=== PATIENT | male | born 1985 | race Caucasian/White ===

== ENCOUNTER 2018-03-08 03:22 | Day surgery (SDC) | payer SELFPAY ==
[~2018-03-08] VITALS: Ht 177.8 cm; Wt 72.4 kg
[2018-03-08] MEDS ORDERED: NS IV 1000 ML 1,000 ML IV ONE (03:34)
--- NOTE | 2018-03-08 03:43 | ED Abdominal Pain ---
General Stated Complaint: RT SIDE ABD PAIN Source of Information: Patient Exam Limitations: No Limitations History of Present Illness Date Seen by Provider: Mar 08, 2018 Time Seen by Provider: 03:27 Initial Comments Here with report of right lower quadrant abdominal pain that has been going on for one to 2 days. Worse with movement and better with rest. Denies nausea, vomiting or diarrhea. Denies fever or chills. Timing/Duration: 1-2 Days Severity/Quality: Moderate, Aching Location: RLQ Radiation: No Radiation Modifying Factors: Worsens With Movement; Improves With Resting Associated Symptoms: No Fever/Chills, No Nausea/Vomiting, No Shortness of Air, No Weakness Allergies and Home Medications Allergies Coded Allergies: No Known Drug Allergies (Unverified , 03/08/18) Patient Home Medication List Home Medication List Reviewed: Yes Review of Systems Review of Systems Constitutional: see HPI; No chills, No fever Respiratory: No Symptoms Reported Cardiovascular: No Symptoms Reported Gastrointestinal: See HPI, Abdominal Pain; Denies Constipated, Denies Diarrhea Genitourinary: No Symptoms Reported Musculoskeletal: no symptoms reported All Other Systems Reviewed Negative Unless Noted: Yes Past Ykqlgdt-Luqswn-Hnlzie Hx Past Med/Social Hx: Reviewed Nursing Past Med/Soc Hx Patient Social History Alcohol Use: Denies Use Recreational Drug Use: No Smoking Status: Never a Smoker Recent Foreign Travel: No Contact w/Someone Who Travel: No Past Medical History Surgeries: Yes Abdominal (pyloric stenosis) Respiratory: No Cardiac: No Neurological: No Genitourinary: No Gastrointestinal: No Musculoskeletal: No Endocrine: No Cancer: No Psychosocial: No Family Medical History Heart Disease Physical Exam Vital Signs Vital Signs - First Documented 03/08/18 03:30 Temp 97.7 Pulse 86 Resp 16 B/P (MAP) 146/89 (108) Pulse Ox 100 Capillary Refill : Height/Weight/BMI Height: '" Weight: lbs. oz. kg; BMI Method: General Appearance: WD/WN, no apparent distress HEENT: PERRL/EOMI, pharynx normal Neck: full range of motion, supple Respiratory: lungs clear, normal breath sounds Cardiovascular: regular rate, rhythm, no murmur Gastrointestinal: soft; No distended, No guarding, No rebound; tenderness ( right lower quadrant) Extremities: non-tender, normal inspection Back: normal inspection, no CVA tenderness, no vertebral tenderness Neurologic/Psychiatric: alert, oriented x 3 Skin: normal color, warm/dry Progress/Results/Core Measures Results/Orders Lab Results Laboratory Tests Test 03/08/18 03:40 Range/Units White Blood Count 11.1 H 4.3-11.0 10^3/uL Red Blood Count 5.12 4.35-5.85 10^6/uL Hemoglobin 15.4 13.3-17.7 G/DL Hematocrit 43 40-54 % Mean Corpuscular Volume 84 80-99 FL Mean Corpuscular Hemoglobin 30 25-34 PG Mean Corpuscular Hemoglobin Concent 36 32-36 G/DL Red Cell Distribution Width 12.4 10.0-14.5 % Platelet Count 246 130-400 10^3/uL Mean Platelet Volume 9.5 7.4-10.4 FL Neutrophils (%) (Auto) 70 42-75 % Lymphocytes (%) (Auto) 18 12-44 % Monocytes (%) (Auto) 9 0-12 % Eosinophils (%) (Auto) 2 0-10 % Basophils (%) (Auto) 0 0-10 % Neutrophils # (Auto) 7.8 1.8-7.8 X 10^3 Lymphocytes # (Auto) 2.0 1.0-4.0 X 10^3 Monocytes # (Auto) 0.9 0.0-1.0 X 10^3 Eosinophils # (Auto) 0.3 0.0-0.3 10^3/uL Basophils # (Auto) 0.0 0.0-0.1 10^3/uL Sodium Level 140 135-145 MMOL/L Potassium Level 3.8 3.6-5.0 MMOL/L Chloride Level 103 98-107 MMOL/L Carbon Dioxide Level 23 21-32 MMOL/L Anion Gap 14 5-14 MMOL/L Blood Urea Nitrogen 17 7-18 MG/DL Creatinine 1.10 0.60-1.30 MG/DL Estimat Glomerular Filtration Rate > 60 BUN/Creatinine Ratio 15 Glucose Level 114 H 70-105 MG/DL Calcium Level 9.8 8.5-10.1 MG/DL Corrected Calcium 8.5-10.1 MG/DL Total Bilirubin 0.9 0.1-1.0 MG/DL Aspartate Amino Transf (AST/SGOT) 17 5-34 U/L Alanine Aminotransferase (ALT/SGPT) 19 0-55 U/L Alkaline Phosphatase 72 40-136 U/L Total Protein 8.0 6.4-8.2 GM/DL Albumin 4.8 H 3.2-4.5 GM/DL My Orders Orders - DEREK MA MD Cbc With Automated Diff (03/08/18 03:34) Comprehensive Metabolic Panel (03/08/18 03:34) Ct Abd/Pelv W (Appendicitis) (03/08/18 03:34) Saline Lock/Iv-Start (03/08/18 03:34) Ns Iv 1000 Ml (Sodium Chloride 0.9%) (03/08/18 03:34) Iohexol Injection (Omnipaque 350 Mg/Ml 1 (03/08/18 04:00) Ns (Ivpb) (Sodium Chloride 0.9%) (03/08/18 04:00) Ceftriaxone For Iv Use (Rocephin For I (03/08/18 04:15) Medications Given in ED Current Medications Medications Dose Ordered Sig/Kika Route Start Time Stop Time Status Last Admin Dose Admin Ceftriaxone Sodium 1000 mg/ Sodium Chloride 60 ml @ 100 mls/hr ONCE ONCE IV 03/08/18 04:15 03/08/18 04:50 03/08/18 04:20 100 MLS/HR Iohexol 100 ml ONCE ONCE IV 03/08/18 04:00 03/08/18 04:01 DC 03/08/18 03:57 100 ML Sodium Chloride 250 ml ONCE ONCE IV 03/08/18 04:00 03/08/18 04:01 DC 03/08/18 03:57 80 ML Sodium Chloride 1,000 ml @ 0 mls/hr Q0M ONCE IV 03/08/18 03:34 03/08/18 03:36 DC 03/08/18 03:45 1,000 MLS/HR Vital Signs/I&O 03/08/18 03:30 Temp 97.7 Pulse 86 Resp 16 B/P (MAP) 146/89 (108) Pulse Ox 100 Progress Progress Note : Progress Note Seen and evaluated. IV, labs, UA, normal saline [address] abdomen and pelvis appendicitis protocol ordered. Monitor patient. 0410: Acute appendectomy noted. UA canceled. Rocephin 1 g IV. I discussed the case with Dr. Meyer and he accepts patient for admission, observation status with patient to go to OR this morning. Diagnostic Imaging Diagonstic Imaging: CT Plain Films/CT/US/NM/MRI: abdomen, pelvis Comments There is appendicitis involving a retrocecal appendix without at present evidence for abscess or perforation. Reviewed: Reviewed Night Hawk Study, Reviewed by Me Departure Communication (Admissions) Time/Spoke to Admitting Phy: 04:10 Impression Primary Impression: Appendicitis Qualified Codes: K35.30 - Acute appendicitis with localized peritonitis, without perforation or gangrene Disposition: ADMITTED INPATIENT Condition: Stable Admissions Decision to Admit Reason: Admit from ER (General) Decision to Admit/Date: Mar 08, 2018 Time/Decision to Admit Time: 04:10 Departure-Patient Inst. Referrals: NO,LOCAL PHYSICIAN (PCP/Family) Primary Care Physician DEREK MA MD Mar 08, 2018 03:43
[2018-03-08 03:50] LABS: BASOPHILS % (AUTO) 0 % (0-10); EOSINOPHILS # (AUTO) 0.3 10^3/uL (0.0-0.3); EOSINOPHILS % (AUTO) 2 % (0-10); HEMATOCRIT 43 % (40-54); HEMOGLOBIN 15.4 G/DL (13.3-17.7); LYMPHOCYTES % (AUTO) 18 % (12-44); MEAN CORPUSCULAR HEMOGLOBIN 30 PG (25-34); MEAN CORPUSCULAR HGB CONC 36 G/DL (32-36); MEAN CORPUSCULAR VOLUME 84 FL (80-99); MEAN PLATELET VOLUME 9.5 FL (7.4-10.4); MONOCYTES # (AUTO) 0.9 X 10^3 (0.0-1.0); MONOCYTES % (AUTO) 9 % (0-12); NEUTROPHILS # (AUTO) 7.8 X 10^3 (1.8-7.8); NEUTROPHILS % (AUTO) 70 % (42-75); PLATELET COUNT 246 10^3/uL (130-400); RED BLOOD COUNT 5.12 10^6/uL (4.35-5.85); RED CELL DISTRIBUTION WIDTH 12.4 % (10.0-14.5); WHITE BLOOD COUNT 11.1 10^3/uL (4.3-11.0)
[2018-03-08] MEDS ORDERED: IOHEXOL 350 MG/ML 100 ML (OMNIPAQUE 350) VIAL IV ONE (04:00)
[2018-03-08] MEDS ORDERED: NS 250 ML (IVPB) BAG IV ONE (04:00)
[2018-03-08 04:05] LABS: ALANINE AMINOTRANSFERASE 19 U/L (0-55); ALBUMIN 4.8 GM/DL (3.2-4.5); ALKALINE PHOSPHATASE 72 U/L (40-136); BILIRUBIN,TOTAL 0.9 MG/DL (0.1-1.0); BUN/CREATININE RATIO 15; CALCIUM 9.8 MG/DL (8.5-10.1); CARBON DIOXIDE 23 MMOL/L (21-32); CHLORIDE 103 MMOL/L (98-107); GFR ESTIMATED > 60; GLUCOSE 114 MG/DL (70-105); POTASSIUM 3.8 MMOL/L (3.6-5.0); SODIUM 140 MMOL/L (135-145)
[2018-03-08] MEDS ORDERED: cefTRIAXone FOR IV USE 1,000 MG in NS (IVPB) 50 ML IV ONE (04:15)
[2018-03-08] MEDS: NS IV 1000 ML 1,000 ML IV SCH ×2 (05:44→13:46)
[2018-03-08] MEDS ORDERED: ONDANSETRON 4 MG/2 ML (SDV) Z0FRAN IV PRN (05:45)
[2018-03-08] MEDS ORDERED: fentaNYL INJECTION 100 MCG/2 ML AMP IV PRN (06:00)
--- NOTE | 2018-03-08 06:40 | Diagnostic Imaging Report ---
PROCEDURE: CT abdomen and pelvis with contrast, rule out appendicitis. TECHNIQUE: Multiple contiguous axial images were obtained through the abdomen and pelvis after the administration of intravenous contrast. INDICATION: Abdominal pain. COMPARISON: None. FINDINGS: The appendix is dilated, demonstrates a thickened enhancing wall, contains a small appendicolith surrounded by inflammatory change in the mesentery. No organized fluid collections or free intraperitoneal air. No evidence of bowel obstruction. Lung bases are clear. The liver, gallbladder, pancreas, spleen, adrenals, collecting systems and bladder are negative. No lymphadenopathy. No acute osseous findings. IMPRESSION: CT findings consistent with acute uncomplicated appendicitis. Dictated by: Dictated on workstation # [id number]
[2018-03-08] MEDS ORDERED: FLU QUADRIvalent (5+ YOA) 2018-2019 (AFLURIA) 0.5 ML IM ONE (07:15)
[2018-03-08 08:00] VITALS: BP 124/83
--- NOTE | 2018-03-08 09:33 | History & Physical-Surgical ---
History of Present Illness History of Present Illness Reason for visit/HPI Surgery asked to consult regarding Acute Appendicitis. 32 year old male who was admitted from the ED for 2 day history of RLQ abdominal pain. Pt describes the pain as a "bloating feeling." Pt states that the pain has been constant since then and decided to come to the hospital because it was not getting any better. Pt states the pain does not radiate anywhere. Nothing makes the pain better and nothing makes the pain worse. Pt denies N/V/D, fever, CP, SOB. Dr. Villarreal I saw this pt at 945 and did a full H&P myself. Pt states pain started and then woke him Saturday night at 130am and has not been able to go back to sleep since then. That is why he came to ER. His pain now he rates as a 2; at its worst it was a 5-6. Date of Admission Mar 08, 2018 at 04:15 Date Seen by a Provider: Mar 08, 2018 Time Seen by a Provider: 09:10 I consulted on this patient on 03/08/18 09:28 Attending Physician Roni Villarreal DO Admitting Physician No,Local Physician Consult Allergies and Home Medications Allergies Coded Allergies: No Known Drug Allergies (Unverified , 03/08/18) Home Medications No Active Prescriptions or Reported Meds Patient Home Medication List Home Medication List Reviewed: Yes Past Wcmdxcd-Avtffa-Mboqln Hx Patient Social History Alcohol Use: Denies Use Recreational Drug Use: No Smoking Status: Never a Smoker Recent Foreign Travel: No Contact w/Someone Who Travel: No Recent Infectious Disease Expo: No Recent Hopitalizations: No Physical Abuse Screen: No Sexual Abuse: No Seasonal Allergies Seasonal Allergies: No Surgeries History of Surgeries: Yes (pyloric stenosis) Surgeries: Abdominal (pyloric stenosis) Respiratory History of Respiratory Disorde: No Cardiovascular History of Cardiac Disorders: No Neurological History of Neurological Disord: No Genitourinary History of Genitourinary Disor: No Gastrointestinal History of Gastrointestinal Di: Yes (pyloric stenosis as a ) Musculoskeletal History of Musculoskeletal Dis: No Endocrine History of Endocrine Disorders: No HEENT History of HEENT Disorders: No Cancer History of Cancer: No Psychosocial History of Psychiatric Problem: No Integumentary History of Skin or Integumenta: No Blood Transfusions History of Blood Disorders: No Family Medical History Significant Family History: Heart Disease Family Medial History: FH: CAD (coronary artery disease) 19 MOTHER Hypertension 19 MOTHER, Onset:Unknown Myocardial infarction 19 FATHER, Onset:Unknown Review of Systems Constitutional: No chills, No diaphoresis, No fever EENTM: No blurred vision, No double vision, No mouth pain, No mouth swelling, No epistaxis Respiratory: No cough, No dyspnea on exertion, No hemoptysis, No short of breath Cardiovascular: No chest pain, No palpitations Gastrointestinal: RLQ; No constipation, No diarrhea, No jaundice Genitourinary: No dysuria, No frequency, No hematuria Musculoskeletal: No back pain, No joint pain, No muscle pain Skin: No change in color, No change in hair/nails Psychiatric/Neurological: Denies Anxiety, Denies Depressed, Denies Seizure, Denies Tremors Pt denies any abnormal bruising or bleeding Physical Exam Vital Signs Vital Signs - First Documented 03/08/18 03/08/18 03:30 04:55 Temp 97.7 Pulse 86 Resp 16 B/P (MAP) 146/89 (108) Pulse Ox 100 O2 Delivery Room Air Capillary Refill : Less Than 3 Seconds Height, Weight, BMI Height: 5'10.00" Weight: 159lbs. 9.0oz. [id number]; 22.9 BMI Method:Stated General Appearance: No Apparent Distress, WD/WN Eyes: Bilateral Eye PERRL, Bilateral Eye EOMI HEENT: Pharynx Normal; No Pale Conjunctivae (L), No Pale Conjunctivae (R), No Scleral Icterus (L), No Scleral Icterus (R) Neck: Full Range of Motion, Normal Inspection, Supple Respiratory: Chest Non Tender, Lungs Clear, Normal Breath Sounds, No Accessory Muscle Use, No Respiratory Distress Cardiovascular: Regular Rate, Rhythm, No Murmur, Normal Peripheral Pulses Gastrointestinal: Soft; No Guarding, No Rebound; Tenderness (mild RLQ with deep palpation) Back: No CVA Tenderness, No Vertebral Tenderness Extremity: Normal Inspection, Normal Range of Motion Neurologic/Psychiatric: Alert, Oriented x3, No Motor/Sensory Deficits, Normal Mood/Affect, track equipment operator II-XII Norm as Tested Skin: Normal Color, Warm/Dry Lymphatic: No Adenopathy (neck, axilla or groin) Data Review Labs Laboratory Tests 03/08/18 03:40: White Blood Count 11.1H, Red Blood Count 5.12, Hemoglobin 15.4, Hematocrit 43, Mean Corpuscular Volume 84, Mean Corpuscular Hemoglobin 30, Mean Corpuscular Hemoglobin Concent 36, Red Cell Distribution Width 12.4, Platelet Count 246, Mean Platelet Volume 9.5, Neutrophils (%) (Auto) 70, Lymphocytes (%) (Auto) 18, Monocytes (%) (Auto) 9, Eosinophils (%) (Auto) 2, Basophils (%) (Auto) 0, Neutrophils # (Auto) 7.8, Lymphocytes # (Auto) 2.0, Monocytes # (Auto) 0.9, Eosinophils # (Auto) 0.3, Basophils # (Auto) 0.0, Sodium Level 140, Potassium Level 3.8, Chloride Level 103, Carbon Dioxide Level 23, Anion Gap 14, Blood Urea Nitrogen 17, Creatinine 1.10, Estimat Glomerular Filtration Rate > 60, BUN/ Creatinine Ratio 15, Glucose Level 114H, Calcium Level 9.8, Corrected Calcium , Total Bilirubin 0.9, Aspartate Amino Transf (AST/SGOT) 17, Alanine Aminotransferase (ALT/SGPT) 19, Alkaline Phosphatase 72, Total Protein 8.0, Albumin 4.8H Assessment/Plan Assessment/Plan Admission Diagonsis Acute Appendicitis Admission Status: Observation Assessment/Plan Dr. Villarreal Acute appendicitis Plan was to admit pt and keep NPO, start IV fluids, IV ABX and plan for Lap appy today. I spoke with pt regarding the procedure; risks and complications not limited to pain, bleeding, infection, scar, damage to bowel and need for further procedure. All questions answered to his satisfaction. Physician Assessment Physician Assessment Scribed by Daniel Khan MS3 for Dr. Villarreal Clinical Quality Measures DVT/VTE Risk/Contraindication: Risk Factor Score Per Nursin RFS Level Per Nursing on Admit: 1=Low/No VTE PPX ERI KHAN MEDICAL STUDENT Mar 08, 2018 09:33 RONI VILLARREAL DO Mar 08, 2018 10:02
[2018-03-08] MEDS ORDERED: LIDOCAINE PF 2% 5 ML (XYLOCAINE) VIAL ONE (09:47)
[2018-03-08] MEDS ORDERED: SEVOFLURANE (ULTANE) 15 ML INHAL SOLN ONE ×2 (09:47→11:14)
[2018-03-08] MEDS ORDERED: ROCURONIUM 10 MG/ML 5 ML SYRINGE IV ONE (09:47)
[2018-03-08] MEDS ORDERED: proPOfol 200 MG/20 ML (DIPRIVAN) VIAL IV ONE (09:47)
[2018-03-08] MEDS ORDERED: ONDANSETRON 4 MG/2 ML (SDV) Z0FRAN ONE (09:47)
[2018-03-08] MEDS ORDERED: DEXAMETHASONE 10 MG/ML (DECADRON) 1 ML VIAL ONE (09:47)
[2018-03-08] MEDS ORDERED: fentaNYL INJECTION 100 MCG/2 ML AMP ONE ×2 (09:48→11:12)
[2018-03-08] MEDS ORDERED: MIDAZOLAM 2 MG/2 ML (VERSED) VIAL ONE (09:48)
[2018-03-08] MEDS ORDERED: LIDOCAINE/EPI 1%-1:200,000 (XYLOCAINE) 10 ML VIAL ONE (09:57)
[2018-03-08] MEDS ORDERED: ceFAZolin 1,000 MG/10 ML (ANCEF) VIAL ONE (10:20)
[2018-03-08] MEDS ORDERED: morphine INJ 10 MG/ML 1ML (SYR OR VIAL) IVP ONE (10:30)
[2018-03-08] MEDS ORDERED: ONDANSETRON 4 MG/2 ML (SDV) Z0FRAN IVP PRN (10:30)
[2018-03-08] MEDS ORDERED: MEPERIDINE (DEMEROL) INJ 50 MG/ML IVP ONE (10:30)
[2018-03-08] MEDS ORDERED: ceFAZolin 1,000 MG/10 ML (ANCEF) VIAL IV ONE (10:45)
[2018-03-08] MEDS ORDERED: LACTATED RINGERS 1,000 ML IV PRN (10:52)
[2018-03-08] MEDS ORDERED: GLYCOPYRROLATE 0.2 MG/ML (ROBINUL) 2 ML VIAL ONE (11:03)
[2018-03-08] MEDS ORDERED: NEOSTIGMINE 1 MG/ML 5 ML SYRINGE ONE (11:03)
--- NOTE | 2018-03-08 11:20 | Progress Note-Post Operative ---
Post-Operative Progess Note Surgeon (s)/Network Operations Manager (s) Surgeon KATY FINE DO Network Operations Manager: REUBEN Pickard Pre-Operative Diagnosis Acute appy Post-Operative Diagnosis same Procedure & Operative Findings Date of Procedure 03/08/18 Procedure Performed/Findings Lap Appy Anesthesia Type GET Estimated Blood Loss Estimated blood loss (mL): scant Specimens/Packing Specimens Removed KATY Mix DO Mar 08, 2018 11:20
[2018-03-08] MEDS ORDERED: TRAM50TA2 PO (11:21)
--- NOTE | 2018-03-08 11:23 | Discharge Inst-Surgical ---
Discharge Inst-Surgical Depart Medication/Instructions New, Converted or Re-Newed RX: RX Given to Pt/Family Patient Instructions Follow up Appt: Make appointment for 1 week. [phone] Instructions: No lifting greater than 20 pounds. No strenuous activity. May shower in 24 hours, no tub bath or soaking. Use incentive spirometer at home as directed. No Smoking Skin/Wound Care: May remove bandages in am. You need to leave the Dermabond on over incision it will fall off on its own. Symptoms to Report: Appetite Changes, Extremity Discoloration, Numbness/Tingling, Swelling Increased , Bleeding Excessive, Eyesight Changes, Pain Increased, Urine Color Change, Constipation(Persistent), Fever over 101 degree F, Pain/Pressure in chest, Urinating Difficulty, Cough Up/Vomit Blood, Heart Beat Irreg/Pounding, Pain/ Pressure in jaw, Cramps in feet or legs, Lightheadedness, Pain/Pressure in shoulder, Diarrhea(Persistent), Memory Changes Suddenly, Questions/Concerns, Weight gain consecutive days, Dizziness/Fainting, Nausea/Vomiting, Shortness of Breath, Weight gain over 2 pounds If questions or concerns contact your physician Or seek help at emergency department. Activity Activity as Tolerated: Yes Activity Instructions: Avoid Stress to Incision Driving Instructions: No Driving/Refer to Dr. Rashid Discharge Diet: No Restrictions Diet After 24 Hours: Clear Liquid if Nauseous If Any Problems/Questions/Issu: Contact Your Physician Skin/Wound Care Infection Signs and Symptoms: Increased Redness, Foul Odor of Wound, Increased Drainage, Skin Itchy or Has a Rash, Increased Swelling, Temperature Above 101 F Wound Care Comment: Heating pad to shoulder or neck tonight Stitches/[place]/Dermabond Dis: Dermabond Ice Pack: Ice On and Off Site (as needed for pain) KATY FINE DO Mar 08, 2018 11:23
[2018-03-08 12:00] VITALS: BP 122/75
[2018-03-08 15:37] VITALS: BP 120/58
--- NOTE | 2018-03-08 15:51 | OPERATIVE REPORT ---
DATE OF SERVICE: 03/08/2018 PREOPERATIVE DIAGNOSIS: Acute appendicitis. POSTOPERATIVE DIAGNOSIS: Acute appendicitis. PROCEDURE: Laparoscopic appendectomy. SURGEON: Roni Villarreal DO PATIENT OFFICE REP: Daniel Shah MS3. ANESTHESIA: General endotracheal tube. SPECIMEN: Appendix. ESTIMATED BLOOD LOSS: Scant. FLUIDS: Per anesthesia. POSTOPERATIVE CONDITION: Stable. INDICATION FOR PROCEDURE: The patient is a 32-year-old male, who had pain in the right lower quadrant, came in and had a CT, which was performed and read as acute appendicitis. FINDINGS: The patient had a retrocecal appendix, so it was all contained. There did not appear to be any perforation, it was a little bit inflamed and thickened. PROCEDURE NOTE: After informed consent was obtained, the patient was brought to the operating room, placed on the table in supine position. He was sterilely prepped and draped in normal fashion. Local lidocaine was used to infiltrate the skin above the umbilicus. Made an incision with #11 blade, carried down through the skin into subcutaneous tissue and deepened down to subcutaneous tissue with Bovie electrocautery down to fascia. Fascia was incised with Bovie electrocautery and bluntly entered the abdomen, swept the finger around, placed 0 Vicryl [id number] suture and placed a 11 mm trocar port under direct visualization and created pneumoperitoneum and placed 2 more ports in normal fashion using local lidocaine. An 11 blade for stab incision and Versed system, all done under direct visualization, one suprapubically and one in the left lower quadrant. The patient was then placed in Trendelenburg. The leg was rotated slightly to the left, identified the terminal ileum and the cecum and then could see the appendix. It was coming down under the cecum and retrocecal and actually almost behind some of the mesentery. I was able to start freeing this up. I elected to come across the base of the appendix right at the cecum, getting under the mesentery with the blunt dissection as well as with the LigaSure clamping and coagulating. Once we made a hole, I then switched to a 5 mm camera, brought Endo-AMARILYS into the abdomen, placed it across the base of the appendix, clamped and fired, thereby transecting the appendix and then started taking the appendix off coming through the mesoappendix with a LigaSure, clamping, coagulating and transecting and in this fashion, completely removing the appendix. It had gone up under the cecum and up in the pericolic gutter going towards the liver. Once this was completely removed, I then placed a bag and placed the appendix in the bag and then removed this through the supraumbilical incision. I placed the port back in the abdomen, copiously irrigated with normal saline, suctioned this out. I did not see any other obvious pathology and then at this point, placed the patient back in the supine position. I removed all ports under direct visualization and allowed pneumoperitoneum to escape, closed supraumbilical incision, closing the fascia with 0 Vicryl suture previously placed, copiously irrigating the incision with normal saline, then closing the 2 small 5 mm incisions with a single interrupted 4-0 undyed Monocryl subcuticular stitch. Closed the supraumbilical incision with 3 interrupted 4-0 undyed Monocryl subcuticular stitches. Area was cleaned and dried and then Dermabond was placed as well as Band-Aids. The patient was then transferred to recovery room in stable condition. Sponge, instrument and needle correct at the end of the case. Job ID: [id number] DocumentID: [id number] Dictated Date: 03/08/2018 12:07:24 Golf Course Designer Date: 03/08/2018 15:50:43 Dictated By: RONI VILLARREAL DO
--- NOTE | 2018-03-09 09:17 | Anesthesia-General Post-Op ---
General Patient Condition Mental Status/LOC: Same as Preop Cardiovascular: Satisfactory Nausea/Vomiting: Absent Respiratory: Satisfactory Pain: Controlled Complications: Absent Post Op Complications Complications None Follow Up Care/Instructions Patient Instructions None needed. Anesthesia/Patient Condition Patient Condition Patient is doing well, no complaints, stable vital signs, no apparent adverse anesthesia problems. No complications reported per nursing. OSCAR HOLGUIN CRNA Mar 09, 2018 09:17
== END 2018-03-08 19:34 | disposition home or self-care (01) ==
LOC: ER 03:27 → 4TH 04:15 → UNDOADMOB 04:15 → SDC 04:15 → UNDODISOB 19:34 → SDC 19:34
PROVIDERS: ATTEND Surgery
DX: K35.80 Unspecified acute appendicitis (principal)
CPT/HCPCS: 36415; 74177; 80053; 85025; 87081; 88304; 96361; 96365